=== PATIENT | female | born 1965 | race Caucasian/White ===

== ENCOUNTER 2019-03-31 15:29 | Outpatient (CLI) | payer MEDICAID, SELFPAY ==
[2019-03-31 15:46] LABS: Abs Immature Grans 0.01 k/cumm (0.0-0.09); Absolute Basophil Count 0.02 k/cumm (0.0-0.2); Absolute Eosinophil Count 0.12 k/cumm (0.0-0.7); Absolute Lymphocyte Count 2.31 k/cumm (1.2-3.4); Absolute Monocyte Count 0.73 k/cumm (0.11-0.7); Absolute Neutrophil Count 3.81 k/cumm (1.2-6.7); Basophils % 0.3; Eosinophils % 1.7; HCT 44.1 % (36.0-46.0); HGB 15.1 g/dL (12.0-15.5); Immature Grans % 0.1; Mean Corp. HGB Concentration 34.2 g/dL (32.0-36.0); Mean Corpuscular Hemoglobin 33.3 pg (27.0-33.0); Mean Corpuscular Volume 97.1 fL (80-95); Mean Platelet Volume 10.4 fL (8.0-11.0); Monocytes % 10.4; Neutrophils % 54.5; Platelet Count 266 x1000/uL (130-400); RBC 4.54 m/cumm (4.00-5.20); RBC Distribution Width 13.6 % (11.7-14.6)
[2019-03-31 17:19] LABS: Iron 124 ug/dL (50-175); Total Iron Binding Capacity 318 ug/dL (250-450)
[2019-03-31 17:32] LABS: ALT 38 U/L (14-59); AST 18 U/L (15-37); Alkaline Phosphatase 78 U/L (46-116); Anion Gap 8.2 mmol/L (3-11); BUN 20 mg/dL (7-18); Bilirubin, Total 0.3 mg/dL (0.2-1.0); CO2 25.8 mmol/L (21.0-32.0); CREATININE 0.78 mg/dL (0.55-1.02); Calcium 9.3 mg/dL (8.5-10.1); Chloride 104 mmol/L (98-107); Ferritin 49 ng/mL (8-388); Glucose 85 mg/dL (70-100); Potassium 4.5 mmol/L (3.5-5.1); Sodium 138 mmol/L (136-145); TSH (W/Ref FT4) 4.98 uIU/mL (0.36-3.74); Total Protein 7.6 g/dL (6.4-8.2)
[2019-03-31 17:55] LABS: FREE T4 0.91 ng/dL (0.76-1.46)
== END 2019-03-31 15:49 ==
PROVIDERS: PCP Nurse Practitioner Family; Visit Provider Obstetrics & Gynecology
DX: N92.0 Excessive and frequent menstruation with regular cycle (principal); R53.83 Other fatigue
CPT/HCPCS: 36415; 80053; 82728; 83540; 83550; 84439; 84443; 85025

== ENCOUNTER 2019-04-15 13:46 | Outpatient (CLI) | payer MEDICAID, SELFPAY ==
[2019-04-15 16:27] LABS: HCT 43.9 % (36.0-46.0); HGB 14.8 g/dL (12.0-15.5); Mean Corp. HGB Concentration 33.7 g/dL (32.0-36.0); Mean Corpuscular Hemoglobin 32.5 pg (27.0-33.0); Mean Corpuscular Volume 96.5 fL (80-95); Mean Platelet Volume 9.9 fL (8.0-11.0); Platelet Count 271 x1000/uL (130-400); RBC 4.55 m/cumm (4.00-5.20); RBC Distribution Width 13.2 % (11.7-14.6); White Blood Cell Count 7.84 k/cumm (4.4-10.8)
== END 2019-04-15 14:06 ==
PROVIDERS: PCP Nurse Practitioner Family; Visit Provider Obstetrics & Gynecology
DX: N95.0 Postmenopausal bleeding (principal); Z01.812 Encounter for preprocedural laboratory examination; Z01.818 Encounter for other preprocedural examination
CPT/HCPCS: 36415; 85027; 86850; 86900; 86901

== ENCOUNTER 2019-04-21 08:59 | Day surgery (SDC) | payer MEDICAID, SELFPAY ==
[2019-04-15 14:25] VITALS: BP 110/66; PULSE 62; RESP 16; TEMP 37.3; O2SAT 98
--- NOTE | 2019-04-20 10:22 | W.PM.HP.N ---
Date of service: 04/21/19 Time of Service: 07:00 Assessment and Plan Assessment and plan (1) Fibroids, submucosal: Status: Acute Assessment and plan: 1) Perimenopausal menorrhagia: (2) Fibroids, submucosal: 53 yo perimenopausal bleeding with complaints of menorraghia/submucosal fibroid will get labs cbc,tsh, prolactin iron studies plan operative hysteroscopy D+C myomectomy consent signed all questions asked and answered risks bleeding, infection and uterine perforation reviewed reviewed risk of bowel and/or bladder injury if perforation occurs discussed remote risk of loss uterus (2) Perimenopausal menorrhagia: Status: Acute History of Present Illness Narrative: 1) Perimenopausal menorrhagia: (2) Fibroids, submucosal: 53 yo perimenopausal bleeding with complaints of menorraghia/submucosal fibroid will get labs cbc,tsh, prolactin iron studies plan operative hysteroscopy D+C myomectomy PFSH Social History Smoking/Tobacco Use Status: Current every day Tobacco Type: cigarettes Tobacco: How many years used: 40 Do you feel safe at home: Yes Do you feel safe in your relationship?: Yes Female Reproductive History Menstrual Date of menopause: 12/23/13 History History 5 Para 5 Hx # Term Pregnancies 5 Multiple births Hx # Pregnancies Ectopic pregnancies AB induced Hx Number of Living Children 5 AB spontaneous Meds Home Medications and Allergies Home Medications Medication Instructions Recorded Confirmed Type albuterol sulfate 2.5 mg IH .Q4-6H PRN ml 03/30/19 04/15/19 History albuterol sulfate 90 mcg/actuation 2 puff IH QID 03/30/19 04/15/19 History aerosol inhaler ipratropium bromide 17 2 puff IH .Q4-6H PRN gm 03/30/19 04/15/19 History mcg/actuation HFA aerosol inhaler pyridoxine (vitamin B6) 50 mg 50 mg PO DAILY 03/30/19 04/15/19 History tablet vitamin B12 1,000 mcg-folic acid mehreen SL 03/30/19 04/15/19 History 400 mcg sublingual lozenge cholecalciferol (vitamin D3) 1,000 1,000 unit PO DAILY 03/31/19 04/15/19 History unit capsule levothyroxine 25 mcg tablet 25 mcg PO DAILY #30 tab 04/07/19 04/15/19 Rx Allergies Allergy/AdvReac Type Severity Reaction Status Date / Time No Known Allergies Allergy Verified 04/15/19 14:19 Exam Narrative Exam Narrative: 53 yo perimenopausal female with abnormal uterine bleeding, submucosal fibroid scheduled for Hysteroscopy D+C Myomectomy Chest Chest: normal inspection of the chest Resp Effort & Inspection: normal respiratory effort Auscultation: clear to auscultation bilaterally Cardio Rate: regular rate Rhythm: regular rhythm Heart Sounds: S1 normal and S2 normal GI Inspection: normal to inspection Palpation: soft and no hepatosplenomegaly Percussion: normal to percussion Auscultation: normal bowel sounds Results Last Vital Signs Temp 37.3 C 04/15/19 14:25 Pulse 62 04/15/19 14:25 Resp 16 04/15/19 14:25 BP 110/66 04/15/19 14:25 Pulse Ox 98 04/15/19 14:25
[2019-04-21 09:05] VITALS: BP 110/64; PULSE 59; RESP 20; TEMP 36.3; O2SAT 98
[2019-04-21] MEDS: Lactated Ringers 1,000 ML 125 ML IV (10:00)
--- NOTE | 2019-04-21 14:09 | ENDOMET_PTH ---
PATIENT: Joann Irving LOC: [facility] U#:[id number] AGE/SX: 53/F ROOM: RE04/21/[address]: Amy Jones MD : 1965 BED: DIS: 04/21/2019 SPEC #: [id number] RECD: 04/21/19 16:49 STATUS: ENIO REBrandy #: [id number] NICKI: 04/21/19 14:[address]: Amy Jones DEPT: Surgical Specimen RECD BY: Sangeeta Jenkins ENTERED: 04/21/19 16:50 SP TYPE: Endomet OTHR DR: Lupillo Rodas Tissues: 1 - ENDOMETRIUM BX/CURRETTE 2 - CERVICAL BIOPSY Procedures: GROSS AND MICRO LEVEL 4 Comments: [id number]
[2019-04-21 14:58] VITALS: BP 91/51; PULSE 54; RESP 15; TEMP 36.4; O2SAT 94
[2019-04-21 15:38] VITALS: BP 93/55; PULSE 50; RESP 16; TEMP 36.1; O2SAT 97
[2019-04-21] MEDS: Acetaminophen 500 MG TAB 1000 MG PO (16:01)
[2019-04-21 16:30] VITALS: BP 95/47; PULSE 57; RESP 18; TEMP 36; O2SAT 97
--- NOTE | 2019-04-22 12:30 | ROE_ITS ---
DATE OF PROCEDURE: April 21, 2019 PREOPERATIVE DIAGNOSIS: Submucosal fibroid. POSTOPERATIVE DIAGNOSIS: Submucosal fibroid. PROCEDURE: Operative hysteroscopy; myomectomy; D $T$ C SURGEON: Amy Jones M.D. ANESTHESIA: General. COMPLICATIONS: None. ESTIMATED BLOOD LOSS: < 25 cc's FLUIDS: Per Anesthesia record. PROCEDURE: The patient was taken to the Operating Room where she was properly identified. She was t hen placed on the operating table in a dorsal supine position and general anesthesia was induced with out difficulty. She was then placed in the dorsal lithotomy position and prepped and draped in a nor mal sterile fashion. A bivalved speculum was placed; the cervix was visualized, grasped on the anter ior lip with a single-tooth tenaculum. The cervix was then dilated to 18 [place] using the HouseFix dila tors. The operative scope was advanced into the uterine cavity without difficulty. Using the preset bipolar cautery, the entire submucosal fibroid was removed. The fragments of the fibroid were sent to Pathology for permanent evaluation. A sharp curettage was performed. The curettings were sent to Pathology for permanent evaluation. The hysteroscope and tenaculum were removed. There was an ante rior lip cervical mass, probably fibroid, which was excised using the #10 blade; this was also sent t o Pathology for permanent evaluation. The excision site was then closed with #2-0 Vicryl in a runnin g locked fashion. Once hemostasis was confirmed, the patient was awakened and taken to the recovery room in stable condition. Sponge, lap, needle and instrument counts were correct x2.
== END 2019-04-21 16:50 | disposition home or self-care (01) ==
PROVIDERS: PCP Nurse Practitioner Family; Visit Provider Obstetrics & Gynecology
PROC: 0UDB8ZZ Extraction of Endometrium, Via Natural or Artificial Opening Endoscopic (ICD-10-PCS; CPT 58558; principal; 2019-04-21 09:30)
DX: D25.0 Submucous leiomyoma of uterus (principal); N92.4 Excessive bleeding in the premenopausal period; N84.0 Polyp of corpus uteri
CPT/HCPCS: 58145; 58558; 88305; NC; J1885; J2250; J2405; J3010

== ENCOUNTER 2021-02-04 12:25 | Emergency (ER) | payer OTHER, MEDICAID, SELFPAY ==
[2021-02-04] VITALS (17 sets, daily range): BP systolic 91–116; BP diastolic 57–69; PULSE 58–78; RESP 12–27; TEMP 36.2; O2SAT 95–100
--- NOTE | 2021-02-04 | DI.CT_ITS ---
Exam(s) CT THORACIC LUMBAR SPINE REC EXAM: CT THORACIC LUMBAR SPINE REC CLINICAL HISTORY: [place] [facility] [place]: COMPARISON: No exams were available for comparison FINDINGS: LUMBOSACRAL: The appearance of the right transverse process of L1 is developmental variant. The appearance of the left transverse process L1 level is also probably developmental. No other transverse process findin gs identified. No compression fractures. Degenerative anterolisthesis of L4 upon L5 noted approxima tely 6 millimeters. This is related to degenerative changes in the facet joints and there also appea rs to be pars defect on 1 side at this level. Mild foraminal stenosis bilaterally at this level. THORACIC: No compression fractures nor listhesis. No ominous osseous lesions. No central nor foraminal stenos is. Mild degenerative facet joint changes at multiple levels. No prominent disc herniations evident . No paraspinal mass. No incidental significant pulmonary findings in the field of view of this bigg dy. IMPRESSION: Right transverse process L1 no fracture. Equivocal findings left L1 transverse process at this level , probably also developmental. No other fractures evident in thoracic and lumbar spines. Mild degenerative anterolisthesis L4 upon L5.
--- NOTE | 2021-02-04 12:45 | DI.CT_ITS ---
Exam(s) CT HEAD CERVICAL SPINE WO EXAM: CT HEAD CERVICAL SPINE WO CLINICAL HISTORY: Trauma. TECHNIQUE: Imaging Protocol: Axial computed tomography images with coronal and sagittal reformatted images were created and reviewed COMPARISON: No exams were available for comparison FINDINGS: BRAIN: There are no skull fractures nor fluid in the visualized paranasal sinuses. There is no evidence of intracranial hemorrhage, mass effect, or shift of midline structures. There are no extra-axial fluid collections. The ventricles are not enlarged or shifted and there is no blo od within the ventricular system nor within the basal cisterns. CERVICAL SPINE: There is no evidence of acute fracture nor listhesis. No significant prevertebral soft tissue swelli ng. There is reversal of the normal curvature which appears to be related to advanced chronic degenerativ e disc disease at C5-6 level where there is advanced disc space narrowing and posterior bony ridging. There is no significant facet joint malalignment. No significant osseous lesions evident. IMPRESSION: No acute intracranial findings on this noninfused CT scan of the brain. No evidence of cervical spine fracture, malalignment, nor acute compromise of the cervical spinal can al. Chronic degenerative disc disease C5-6 level. RADIATION DOSE DELIVERED: 979.91mGy.cm Total DLP DATA REPOSITORY: All CT scans at this facility are submitted to the National Radiology Data Registry (NRDR) Dose Index Registry (DIR) with the [employer] (ACR). RADIATION OPTIMIZATION: All CT scans at this facility use at least one of these dose optimization te chniques: automated exposure control; mA and/or kV adjustment per patient size (includes targeted exa ms where dose is matched to clinical indication); or iterative reconstruction.
--- NOTE | 2021-02-04 12:45 | DI.CT_ITS ---
Exam(s) CT CHEST/ABD/PEL W EXAM: CT CHEST/ABD/PEL W CLINICAL HISTORY: Trauma. TECHNIQUE: Imaging Protocol: Axial computed tomography images with coronal and sagittal reformatted images were created and reviewed CONTRAST MATERIAL: Intravenous: Omnipaque 350 Contrast volume:100 ml Oral: None COMPARISON: No exams were available for comparison FINDINGS: CHEST: LUNGS: No evidence of lung contusion, infiltrate, pleural effusion, or pneumothorax. No incidental p ulmonary nodules.. MEDIASTINUM: No evidence of mediastinal hematoma. Visualized thyroid unremarkable.No hilar nor media stinal adenopathy. No axillary adenopathy. CARDIAC: Heart size is normal. There is no pericardial effusion.Thoracic aorta is intact. No eviden ce of significant aortic trauma. No dissection. OSSEOUS: Fractures versus developmental variant of both transverse process is of L1 level.. ABDOMEN: There is no evidence of bowel wall nor mesenteric hematoma. There is no ascites. LIVER: No evidence of a patent laceration. No other significant focal hepatic findings. No dilatati on of intrahepatic ducts. GALLBLADDER/BILIARY: No obvious gallbladder pathology. CBD is not dilated. PANCREAS: No evidence of pancreatic mass nor dilatation of the pancreatic duct. SPLEEN: No splenic laceration or perisplenic fluid. Spleen size is normal. Splenic and portal veins are patent. ADRENALS: There are no significant adrenal masses. KIDNEYS: No evidence of significant renal trauma. No renal laceration. No subcapsular hematoma.. N o significant focal renal findings. No hydronephrosis. ABDOMINAL AORTA: Intact. No evidence of significant abdominal aortic trauma and the aortoiliac segme nts are intact bilaterally LYMPH NODES: There is no retroperitoneal nor paraaortic adenopathy. ABDOMINAL WALL: No evidence of significant anterior abdominal wall hernia. GI: No evidence of obvious mesenteric hematoma. No bowel wall hematoma. PELVIS: LYMPH NODES: There is no intrapelvic nor inguinal adenopathy. GI: No evidence of appendicitis.No evidence of sigmoid diverticulitis. URINARY BLADDER: No calculi nor masses evident REPRODUCTIVE: Age appropriate. No abnormal adnexal masses. No free fluid in the pelvis. OSSEOUS: Multiple right-sided pelvic fractures involving both superior and inferior pubic rami, with significant displacement and also extending into the right acetabulum anterior aspect. Mild diastasi s of the symphysis pubis. Subtle angulation of the inferior pubic ramus on the opposite-left side is possibly also subtle fracture. There is also a sys fracture of the right side of the sacrum, not as sociated with prominent diastasis of the ipsilateral sacroiliac joint. No obvious fracture of the le ft michael sacrum. No fractures of the femoral head and neck on either side. No large intra pelvic hematoma. Incidentally noted is an element of degenerative anterolisthesis of L4 upon L5. Approximately 5 mill imeters. No compression fractures. IMPRESSION: 1. Multiple right michael pelvic fractures including both superior and inferior pubic rami and extending into in the anterior aspect of the acetabulum. Also ipsilateral right sacral fracture. Also possib le subtle fracture of the inferior pubic ramus of the opposite side. No evidence of large intrapelvic hematoma. 2. Developmental anomaly versus is fractures of transverse processes bilaterally at L1 level. 3. No evidence of significant intrathoracic trauma. RADIATION DOSE DELIVERED: 1,261.34mGy.cm Total DLP DATA REPOSITORY: All CT scans at this facility are submitted to the National Radiology Data Registry (NRDR) Dose Index Registry (DIR) with the [employer] (ACR). RADIATION OPTIMIZATION: All CT scans at this facility use at least one of these dose optimization te chniques: automated exposure control; mA and/or kV adjustment per patient size (includes targeted exa ms where dose is matched to clinical indication); or iterative reconstruction.
--- NOTE | 2021-02-04 12:52 | W.ED.GENAD ---
Discharge Plan Discharge Details Chief Complaint: Trauma Primary Care Provider: Lupillo Rodas ED Provider: Amy Pineda Home Meds and New Rx's Prescriptions: No Action cholecalciferol (vitamin D3) 1,000 unit capsule 1,000 unit PO DAILY RF: 0 albuterol sulfate 2.5 mg /3 mL (0.083 %) solution for nebulization 2.5 mg IH .Q4-6H PRNRF: 0 Atrovent HFA 17 mcg/actuation HFA aerosol inhaler 2 puff IH .Q4-6H PRNRF: 0 albuterol sulfate [ProAir HFA] 90 mcg/actuation HFA aerosol inhaler 2 puff IH QID RF: 0 vitamin [id number] acid 1,000-400 mcg lozenge SL RF: 0 pyridoxine (vitamin B6) 50 mg tablet 50 mg PO DAILY RF: 0 ibuprofen 200 mg Capsule 600 mg PO Q6H PRNRF: 0 Flovent HFA 110 mcg/actuation HFA aerosol inhaler 2 puff INHALATION BID RF: 0 iron 18 mg Tablet 18 mg PO DAILY RF: 0 Discharge Data Discharge Date/Time-TO BE ENTERED AT DEPARTURE: 02/04/21 15:01 Medical Decision Making <Brooklynn Woodard - Last Filed: 02/05/21 08:37> 55-year-old female presents the ER with chief complaint of crush injury. She reports that there was a team of horses and a wagon they were running away when she was pinned up against a truck and horses. She reports feeling something crack complaining of right-sided rib pain and right sided pelvic pain. She reports losing consciousness after the injury. She was caught by 2 and had no difficulty breathing she is alert and oriented x3 upon arrival. On initial examination Dr. Dianne Pineda ER attending was at the bedside for patient evaluation she was slightly hypertensive initially at 93/59. A pelvic binder was placed FAST exam was performed at bedside by Dr. Pineda which was negative, IV fluids initiated Zofran and fentanyl were given. She has a past medical history of asthma PTSD hypothyroidism anxiety. Surgical history includes appendectomy and tubal ligation. She is a current everyday smoker occasional alcohol. FINDINGS: BRAIN: There are no skull fractures nor fluid in the visualized paranasal sinuses. There is no evidence of intracranial hemorrhage, mass effect, or shift of midline structures. There are no extra-axial fluid collections. The ventricles are not enlarged or shifted and there is no blood within the ventricular system nor within the basal cisterns CERVICAL SPINE: There is no evidence of acute fracture nor listhesis. No significant prevertebral soft tissue swelling. There is reversal of the normal curvature which appears to be related to advanced chronic degenerative disc disease at C5-6 level where there is advanced disc space narrowing and posterior bony ridging. There is no significant facet joint malalignment. No significant osseous lesions evident. IMPRESSION: No acute intracranial findings on this noninfused CT scan of the brain. No evidence of cervical spine fracture, malalignment, nor acute compromise of the cervical spinal canal. Chronic degenerative disc disease C5-[address] Pineda note above, care was handed off to her at her request. Patient hemodynamically stable at the time of this dictation, pending transfer to [facility]. <Amy Pineda MD - Last Filed: 02/11/21 09:36> Joann Irving is a 55-year-old woman without reported history of major medical problems who presented to the emergency department with chief complaint right hip pain in setting of being crushed between horse and vehicle. Patient initially seen by PROJECT DIRECTOR, care assumed by me secondary to acuity. On exam patient appears uncomfortable but is nontoxic appearing. She is alert and oriented. There is tenderness palpation over the right anterior and lateral lower rib, right upper quadrant, and the right hip. Patient is unable to range the right hip secondary to pain. The right lower extremity is neurovascularly intact. Bedside fast is negative. Pelvic binder applied. Concern for major trauma to the thorax/abdomen/pelvis. Patient reports no head injury, however with syncope directly after injury and distracting injury plan for CT head and cervical spine as well as CT chest/abdomen/pelvis. IV placement x2. IV fluid hydration. Screening labs. Patient given IV fentanyl for pain. 13:00 bedside FAST negative. Pelvic binder applied, Pt to CT emergently. CT shows right pubic rami fractures extending to the acetabulum, right sacral fracture, possible L1 transverse process fractures versus congenital abnormality of the transverse processes. Findings discussed with the patient. Patient is amenable to transfer. I discussed patient presentation results with Dr. Graff of trauma surgery,who requests C-spine collar remain in place, head of bed to 30 degrees. Patient is hemodynamically stable at this time with no evidence of internal bleeding. Will keep pelvic binder in place. Plan for ground transfer, this was also discussed with trauma surgery who agrees ground transfer appropriate based on radiologic nature of injuries. Patient departed the emergency department with medics without further incident. Clinical impression: Pelvic fractures, sacral fracture Disposition: [facility] Medical Records Medical records reviewed: Yes I reviewed the patient's medical records. Imaging Data Radiologic Study: Attestation: I personally reviewed and interpreted this imaging study as follows: Radiologist's impression: Exam(s) CT HEAD CERVICAL SPINE WO EXAM: CT HEAD CERVICAL SPINE WO CLINICAL HISTORY: Trauma. TECHNIQUE: Imaging Protocol: Axial computed tomography images with coronal and sagittal reformatted images were created and reviewed COMPARISON: No exams were available for comparison FINDINGS: BRAIN: There are no skull fractures nor fluid in the visualized paranasal sinuses. There is no evidence of intracranial hemorrhage, mass effect, or shift of midline structures. There are no extra-axial fluid collections. The ventricles are not enlarged or shifted and there is no blood within the ventricular system nor within the basal cisterns. CERVICAL SPINE: There is no evidence of acute fracture nor listhesis. No significant prevertebral soft tissue swelling. There is reversal of the normal curvature which appears to be related to advanced chronic degenerative disc disease at C5-6 level where there is advanced disc space narrowing and posterior bony ridging. There is no significant facet joint malalignment. No significant osseous lesions evident. IMPRESSION: No acute intracranial findings on this noninfused CT scan of the brain. No evidence of cervical spine fracture, malalignment, nor acute compromise of the cervical spinal canal. Chronic degenerative disc disease C5-6 level. EXAM: CT CHEST/ABD/PEL W CLINICAL HISTORY: Trauma. TECHNIQUE: Imaging Protocol: Axial computed tomography images with coronal and sagittal reformatted images were created and reviewed CONTRAST MATERIAL: Intravenous: Omnipaque 350 Contrast volume:100 ml Oral: None COMPARISON: No exams were available for comparison FINDINGS: CHEST: LUNGS: No evidence of lung contusion, infiltrate, pleural effusion, or pneumothorax. No incidental pulmonary nodules.. MEDIASTINUM: No evidence of mediastinal hematoma. Visualized thyroid unremarkable.No hilar nor mediastinal adenopathy. No axillary adenopathy. CARDIAC: Heart size is normal. There is no pericardial effusion.Thoracic aorta is intact. No evidence of significant aortic trauma. No dissection. OSSEOUS: Fractures versus developmental variant of both transverse process is of L1 level.. ABDOMEN: There is no evidence of bowel wall nor mesenteric hematoma. There is no ascites. LIVER: No evidence of a patent laceration. No other significant focal hepatic findings. No dilatation of intrahepatic ducts. GALLBLADDER/BILIARY: No obvious gallbladder pathology. CBD is not dilated. PANCREAS: No evidence of pancreatic mass nor dilatation of the pancreatic duct. SPLEEN: No splenic laceration or perisplenic fluid. Spleen size is normal. Splenic and portal veins are patent. ADRENALS: There are no significant adrenal masses. KIDNEYS: No evidence of significant renal trauma. No renal laceration. No subcapsular hematoma.. No significant focal renal findings. No hydronephrosis. ABDOMINAL AORTA: Intact. No evidence of significant abdominal aortic trauma and the aortoiliac segments are intact bilaterally LYMPH NODES: There is no retroperitoneal nor paraaortic adenopathy. ABDOMINAL WALL: No evidence of significant anterior abdominal wall hernia. GI: No evidence of obvious mesenteric hematoma. No bowel wall hematoma. PELVIS: LYMPH NODES: There is no intrapelvic nor inguinal adenopathy. GI: No evidence of appendicitis.No evidence of sigmoid diverticulitis. URINARY BLADDER: No calculi nor masses evident REPRODUCTIVE: Age appropriate. No abnormal adnexal masses. No free fluid in the pelvis. OSSEOUS: Multiple right-sided pelvic fractures involving both superior and inferior pubic rami, with significant displacement and also extending into the right acetabulum anterior aspect. Mild diastasis of the symphysis pubis. Subtle angulation of the inferior pubic ramus on the opposite-left side is possibly also subtle fracture. There is also a sys fracture of the right side of the sacrum, not associated with prominent diastasis of the ipsilateral sacroiliac joint. No obvious fracture of the left michael sacrum. No fractures of the femoral head and neck on either side. No large intra pelvic hematoma. Incidentally noted is an element of degenerative anterolisthesis of L4 upon L5. Approximately 5 millimeters. No compression fractures. IMPRESSION: 1. Multiple right michael pelvic fractures including both superior and inferior pubic rami and extending into in the anterior aspect of the acetabulum. Also ipsilateral right sacral fracture. Also possible subtle fracture of the inferior pubic ramus of the opposite side. No evidence of large intrapelvic hematoma. 2. Developmental anomaly versus is fractures of transverse processes bilaterally at L1 level. 3. No evidence of significant intrathoracic trauma. Lab Data Lab results reviewed: Yes I reviewed the patient's lab results. Labs: Laboratory Tests Range/Units 02/04/21 02/04/21 02/04/21 12:40 12:40 12:40 WBC (4.4-10.8) 10^3/uL 14.18 H RBC (3.93-5.22) 10^6/uL 4.29 Hgb (11.2-15.7) g/dL 14.2 Hct (36.0-46.0) % 42.9 MCV (80-95) fL 100.0 H MCH (27.0-33.0) pg 33.1 H MCHC (32.0-36.0) % 33.1 RDW (11.7-14.6) % 12.7 Plt Count (130-400) 10^3/uL 241 MPV (8.0-11.0) fL 10.7 Immature Gran % 1.1 Neutrophils % 74.7 Band Neutrophils % Lymphocytes % 15.8 Atypical Lymphs % Monocytes % 7.0 Eosinophils % 1.0 Basophils % 0.4 Metamyelocytes % Myelocytes % Promyelocytes % Other Cells % Nucleated RBC % % 0 Absolute Neutrophils (1.2-6.7) 10^3/uL 10.59 H Absolute Lymphocytes (1.2-3.4) 10^3/uL 2.24 Absolute Monocytes (0.1-0.8) 10^3/uL 0.99 H Absolute Eosinophils (0.0-0.7) 10^3/uL 0.14 Absolute Basophils (0.0-0.2) 10^3/uL 0.06 RBC Morphology Polychromasia Hypochromasia Poikilocytosis Basophilic Stippling Anisocytosis Microcytosis Macrocytosis Spherocytes Tear Drop Cells Ovalocytes Stomatocytes [place] Bodies [place] Cells/Echinocytes Acanthocytes (Spur) Schistocytes PT INR Sodium (136-145) mmol/L 142 Potassium (3.5-5.1) mmol/L 3.9 Chloride (98-107) mmol/L 107 Carbon Dioxide (21.0-32.0) mmol/L 25.2 Anion Gap (3-11) mmol/L 9.8 BUN (7-18) mg/dL 18 Creatinine (0.55-1.02) mg/dL 1.0 Estimated GFR/1.73 m2 (mL/min/1.73m2) 57.56 Glucose (74-106) mg/dL 159 H Calcium (8.5-10.1) mg/dL 9.5 Magnesium (1.8-2.4) mg/dL 2.3 Total Bilirubin (0.2-1.0) mg/dL 0.3 AST (15-37) U/L 42 H ALT (14-59) U/L 44 Alkaline Phosphatase (46-116) U/L 60 Troponin I (<0.06) ng/mL < 0.05 Total Protein (6.4-8.2) g/dL 7.1 Albumin (3.4-5.0) g/dL 3.9 Patient ABO/Rh O Positive Antibody Screen NEGATIVE Range/Units 02/04/21 02/04/21 02/04/21 12:49 12:49 12:49 WBC (4.4-10.8) 10^3/uL Cancelled RBC (3.93-5.22) 10^6/uL Cancelled Hgb (11.2-15.7) g/dL Cancelled Hct (36.0-46.0) % Cancelled MCV (80-95) fL Cancelled MCH (27.0-33.0) pg Cancelled MCHC (32.0-36.0) % Cancelled RDW (11.7-14.6) % Cancelled Plt Count (130-400) 10^3/uL Cancelled MPV (8.0-11.0) fL Cancelled Immature Gran % Cancelled Neutrophils % Cancelled Band Neutrophils % Cancelled Lymphocytes % Cancelled Atypical Lymphs % Cancelled Monocytes % Cancelled Eosinophils % Cancelled Basophils % Cancelled Metamyelocytes % Cancelled Myelocytes % Cancelled Promyelocytes % Cancelled Other Cells % Cancelled Nucleated RBC % % Cancelled Absolute Neutrophils (1.2-6.7) 10^3/uL Cancelled Absolute Lymphocytes (1.2-3.4) 10^3/uL Cancelled Absolute Monocytes (0.1-0.8) 10^3/uL Cancelled Absolute Eosinophils (0.0-0.7) 10^3/uL Cancelled Absolute Basophils (0.0-0.2) 10^3/uL Cancelled RBC Morphology Cancelled Polychromasia Cancelled Hypochromasia Cancelled Poikilocytosis Cancelled Basophilic Stippling Cancelled Anisocytosis Cancelled Microcytosis Cancelled Macrocytosis Cancelled Spherocytes Cancelled Tear Drop Cells Cancelled Ovalocytes Cancelled Stomatocytes Cancelled [place] Bodies Cancelled Norm Cells/Echinocytes Cancelled Acanthocytes (Spur) Cancelled Schistocytes Cancelled PT Cancelled INR Cancelled Sodium (136-145) mmol/L Cancelled Potassium (3.5-5.1) mmol/L Cancelled Chloride (98-107) mmol/L Cancelled Carbon Dioxide (21.0-32.0) mmol/L Cancelled Anion Gap (3-11) mmol/L Cancelled BUN (7-18) mg/dL Cancelled Creatinine (0.55-1.02) mg/dL Cancelled Estimated GFR/1.73 m2 (mL/min/1.73m2) Cancelled Glucose (74-106) mg/dL Cancelled Calcium (8.5-10.1) mg/dL Cancelled Magnesium (1.8-2.4) mg/dL Total Bilirubin (0.2-1.0) mg/dL Cancelled AST (15-37) U/L Cancelled ALT (14-59) U/L Cancelled Alkaline Phosphatase (46-116) U/L Cancelled Troponin I (<0.06) ng/mL Total Protein (6.4-8.2) g/dL Cancelled Albumin (3.4-5.0) g/dL Cancelled Patient ABO/Rh Antibody Screen Range/Units 02/04/21 12:49 WBC (4.4-10.8) 10^3/uL RBC (3.93-5.22) 10^6/uL Hgb (11.2-15.7) g/dL Hct (36.0-46.0) % MCV (80-95) fL MCH (27.0-33.0) pg MCHC (32.0-36.0) % RDW (11.7-14.6) % Plt Count (130-400) 10^3/uL MPV (8.0-11.0) fL Immature Gran % Neutrophils % Band Neutrophils % Lymphocytes % Atypical Lymphs % Monocytes % Eosinophils % Basophils % Metamyelocytes % Myelocytes % Promyelocytes % Other Cells % Nucleated RBC % % Absolute Neutrophils (1.2-6.7) 10^3/uL Absolute Lymphocytes (1.2-3.4) 10^3/uL Absolute Monocytes (0.1-0.8) 10^3/uL Absolute Eosinophils (0.0-0.7) 10^3/uL Absolute Basophils (0.0-0.2) 10^3/uL RBC Morphology Polychromasia Hypochromasia Poikilocytosis Basophilic Stippling Anisocytosis Microcytosis Macrocytosis Spherocytes Tear Drop Cells Ovalocytes Stomatocytes [place] Bodies [place] Cells/Echinocytes Acanthocytes (Spur) Schistocytes PT INR Sodium (136-145) mmol/L Potassium (3.5-5.1) mmol/L Chloride (98-107) mmol/L Carbon Dioxide (21.0-32.0) mmol/L Anion Gap (3-11) mmol/L BUN (7-18) mg/dL Creatinine (0.55-1.02) mg/dL Estimated GFR/1.73 m2 (mL/min/1.73m2) Glucose (74-106) mg/dL Calcium (8.5-10.1) mg/dL Magnesium (1.8-2.4) mg/dL Total Bilirubin (0.2-1.0) mg/dL AST (15-37) U/L ALT (14-59) U/L Alkaline Phosphatase (46-116) U/L Troponin I (<0.06) ng/mL Total Protein (6.4-8.2) g/dL Albumin (3.4-5.0) g/dL Patient ABO/Rh Cancelled Antibody Screen HPI <Brooklynn Woodard - Last Filed: 02/05/21 08:37> General Mode of arrival: wheelchair. Date/Time Provider Initiated Documentation: 02/04/21 12:49. Limitations to Documentation: no limitations. Information obtained by: RN notes reviewed. HPI Narrative: 55-year-old female presents the ER with chief complaint of crush injury. She reports that there was a team of horses and a wagon they were running away when she was pinned up against a truck and horses. She reports feeling something crack complaining of right-sided rib pain and right sided pelvic pain. She reports losing consciousness after the injury. She was caught by 2 and had no difficulty breathing she is alert and oriented x3 upon arrival. On initial examination Dr. Dianne Pineda ER attending was at the bedside for patient evaluation she was slightly hypertensive initially at 93/59. A pelvic binder was placed FAST exam was performed at bedside by Dr. Pineda which was negative, IV fluids initiated Zofran and fentanyl were given. She has a past medical history of asthma PTSD hypothyroidism anxiety. Surgical history includes appendectomy and tubal ligation. She is a current everyday smoker occasional alcohol. Related Data Home Medications Medication Instructions Recorded Confirmed albuterol sulfate 2.5 mg IH .Q4-6H PRN ml 03/30/19 02/04/21 albuterol sulfate 90 mcg/actuation 2 puff IH QID 03/30/19 02/04/21 aerosol inhaler ipratropium bromide 17 2 puff IH .Q4-6H PRN gm 03/30/19 02/04/21 mcg/actuation HFA aerosol inhaler pyridoxine (vitamin B6) 50 mg 50 mg PO DAILY 03/30/19 02/04/21 tablet vitamin B12 1,000 mcg-folic acid mehreen SL 03/30/19 04/15/19 400 mcg sublingual lozenge cholecalciferol (vitamin D3) 25 1,000 unit PO DAILY 03/31/19 02/04/21 mcg (1,000 unit) capsule ibuprofen 600 mg PO Q6H PRN 04/21/19 02/04/21 fluticasone propionate [Flovent 2 puff INHALATION BID 02/04/21 02/04/21 HFA] iron 18 mg PO DAILY 02/04/21 02/04/21 Allergies Allergy/AdvReac Type Severity Reaction Status Date / Time No Known Allergies Allergy Verified 05/05/19 15:00 General Stated Complaint: Trauma ERIC: 2 <Amy Pineda MD - Last Filed: 02/11/21 09:36> General Mode of arrival: wheelchair. Limitations to Documentation: no limitations. Information obtained by: patient, RN notes reviewed and old records reviewed. HPI Narrative: Joann Irving is a 55-year-old woman without reported history of major medical problems who presents emergency department chief complaint right hip pain after crush injury. Patient reports that a horse that she was working with fell and she was crushed between a horse in a vehicle. Patient reports that she heard a cracking sound in her pelvis. She reports right hip pain. Patient reports that she was able to take a few steps with assistance at the scene, but has severe pain in the right hip with weightbearing. Patient also reports pain in the right lateral ribs and right upper quadrant. Patient reports that she had a brief syncopal episode after the event that she believes was secondary to the pain she felt in her right hip. She states that she did not hit in the head. No vomiting. She denies pain in her arms or legs. Does report pain in her tailbone area, denies other back pain. Patient reports that she was previously well and in her usual state of health. No fever, shortness of breath, cough, numbness, weakness. <Amy Pineda MD - Last Filed: 02/11/21 09:36> Narrative: Constitutional: denies fevers Eyes: denies eye pain ENT: denies ear pain, dental pain, sore throat Cardiovascular: denies edema, reports right lower lateral rib pain, denies other chest pain Respiratory: denies SOB, cough GI: denies vomiting, diarrhea, reports right upper quadrant abdominal pain, denies other abdominal pain : denies flank pain MSK: denies neck pain, myalgias, reports right hip pain, denies other joint pain, reports pain in the area of her tailbone, denies any other back pain Skin: denies rash Neuro: denies headaches, numbness, weakness PFS <Brooklynn Morochoton - Last Filed: 02/05/21 08:37> Medical History History of anxiety Pt reports during intake for surgery today. History of asthma Pt reports during intake for surgery 04/21/19. History of hypothyroidism Pt reports during intake for surgery today. Surgical History (Updated 05/05/19 @ 14:49 by Fiona Bansal LPN) History of appendectomy Age 5 History of tubal ligation 07/27/1990 Family History Father Hypertension Sister Thyroid disease Brother Down syndrome Mother Thyroid disease Anxiety Panic Social History Smoking/Tobacco Use Status: Current every day Tobacco Type: cigarettes Tobacco: How many years used: 40 Smoking risk assessment performed?: Yes Drug use: Never Details: second hand marijuan smoke Do you feel safe at home: Yes Do you feel safe in your relationship?: Yes Female Reproductive History Menstrual Date of menopause: 12/23/13 History History 5 Para 5 Hx # Term Pregnancies 5 Multiple births Hx # Pregnancies Ectopic pregnancies AB induced Hx Number of Living Children 5 AB spontaneous Exam <Brooklynn Woodard - Last Filed: 02/05/21 08:37> Narrative Exam Narrative: General: Well Developed, Awake and Alert, conversant. Skin: Warm and Dry HEENT: Head: No palpable deformities, Normocephalic Eyes: Pupils PERRLA, EOM's intact. No periorbital eccymosis or step off Ears: Canal patent. Tympanic membranes are clear . No ferrara's sign, no hemptympanum. Nose/Face: Atraumatic. Facial bones nontender to palpation and stable with manipulation. Mouth/Throat: No intraoral trauma. Teeth and mandible are intact. Neck: No midline tenderness, no step off, no deformity to palpation of C-spine. Trachea midline. Chest: No surface trauma. Lungs clear to ausculatation bilaterally. Heart: RRR, no rubs, murmurs or gallop. Abdomen: No abrasions, ecchymosis, or surface trauma. Nondistended. Nontender to palpation no guarding, rebound, or rigidity. Pelvis: Right-sided pelvic tenderness. Femoral pulses strong and equal dorsal pedal pulses palpable CMS intact distally. Extremities no surface trauma. Sensation intact. Peripheral pulses intact and equal.h Neuro: ANO x4, GCS 15, cranial nerves II through XII intact. Motor and sensory exam nonfocal. Reflexes are symmetric. <Amy Pineda MD - Last Filed: 02/11/21 09:36> Narrative Exam Narrative: Constitutional: Appears in pain, [id number], conversing normally HENT: head atraumatic/normocephalic/normal inspection, mucous membranes moist Eyes: conjunctiva normal, sclera normal, pupils 3mm b/l Neck: no stridor, normal ROM, trachea midline, no cervical spine tenderness palpation Chest: normal inspection, there is tenderness to palpation over the right anterior ribs and right lower lateral ribs, no deformity or crepitus Resp: normal work of breathing, LCTAB Cardio: normal rate, normal rhythm, no murmur appreciated GI: abdomen soft, non-distended, tenderness palpation right upper quadrant without rebound or guarding Back: normal inspection, no rash Skin: warm, dry, normal color, no rash, no skin signs of trauma to the chest or abdomen Neuro: alert, not altered, grossly non-focal, normal tone Ext: Tenderness palpation right hip, pain with ranging right hip. able to range right knee and right ankle minimally at this causes pain in the right hip. Normal sensation bilateral lower extremities. DP pulses intact and symmetric. Ranging bilateral upper extremities normally. Psych: normal mood, normal affect, normal behavior Course <Brooklynn Woodard - Last Filed: 02/05/21 08:37> Vital Signs Vital signs: Vital Signs Temperature 36.2 C L 02/04/21 12:34 Pulse 59 L 02/04/21 12:34 Blood Pressure 93/59 L 02/04/21 12:34 Pulse Oximetry 98 02/04/21 12:34 Temperature 36.2 C L 02/04/21 12:34 Temperature Source Temporal Artery Scan 02/04/21 12:34 Pulse 59 L 02/04/21 12:34 Blood Pressure 93/59 L 02/04/21 12:34 Blood Pressure Position Sitting 02/04/21 12:34 Pulse Oximetry 98 02/04/21 12:34 Oxygen Delivery Method Room Air 02/04/21 12:34 Oxygen Flow Rate 0 02/04/21 12:34 Pain Level 10 02/04/21 12:34
[2021-02-04] MEDS: fentaNYL 100 MCG/2 ML VIAL 50 MCG IVP ×3 (12:58→14:44)
[2021-02-04] MEDS: Ondansetron 4 MG/2 ML VIAL IVP (12:58)
[2021-02-04] MEDS: Normal Saline 1,000 ML 1000 ML IV (12:58)
[2021-02-04 13:12] LABS: Abs Immature Grans 0.15 10^3/uL (0.0-0.06); Absolute Eosinophil Count 0.14 10^3/uL (0.0-0.7); Absolute Lymphocyte Count 2.24 10^3/uL (1.2-3.4); Absolute Monocyte Count 0.99 10^3/uL (0.1-0.8); Basophils % 0.4; HCT 42.9 % (36.0-46.0); HGB 14.2 g/dL (11.2-15.7); Immature Grans % 1.1; Lymphocytes % 15.8; MCH 33.1 pg (27.0-33.0); MCHC 33.1 % (32.0-36.0); MPV 10.7 fL (8.0-11.0); Neutrophils % 74.7; Nucleated RBC 0 %; Platelet Count 241 10^3/uL (130-400); RBC 4.29 10^6/uL (3.93-5.22); RDW 12.7 % (11.7-14.6); RDW-SD 47.1 fL; WBC 14.18 10^3/uL (4.4-10.8)
[2021-02-04 13:16] LABS: Absolute Basophil Count 0.06 10^3/uL (0.0-0.2); Absolute Neutrophil Count 10.59 10^3/uL (1.2-6.7)
[2021-02-04 13:33] LABS: ALT 44 U/L (14-59); AST 42 U/L (15-37); Albumin 3.9 g/dL (3.4-5.0); Alkaline Phosphatase 60 U/L (46-116); Anion Gap 9.8 mmol/L (3-11); BUN 18 mg/dL (7-18); Bilirubin, Total 0.3 mg/dL (0.2-1.0); CO2 25.2 mmol/L (21.0-32.0); Calcium 9.5 mg/dL (8.5-10.1); Chloride 107 mmol/L (98-107); Estimated GFR 57.56 (mL/min/1.73m2); Glucose 159 mg/dL (74-106); Magnesium 2.3 mg/dL (1.8-2.4); Potassium 3.9 mmol/L (3.5-5.1); Sodium 142 mmol/L (136-145); Total Protein 7.1 g/dL (6.4-8.2)
[2021-02-04] MEDS: Omnipaque 350 MG/ML 100 ML BTL IV (13:37)
[2021-02-04] MEDS: Normal Saline - Diluent 50 ML VIAL IV (13:40)
[2021-02-04 13:42] LABS: Troponin I < 0.05 ng/mL (<0.06)
[2021-02-04 14:19] LABS: INR 1.1 (0.9-1.1); PTT Activated 21.9 sec (21.0-27.5); Prothrombin Time 10.9 sec (9.3-11.0)
== END 2021-02-04 15:01 ==
PROVIDERS: Registered Nurse Emergency; Emergency Provider Student in an Organized Health Care Education/Training Program; PCP Nurse Practitioner Family
DX: S32.591A Other specified fracture of right pubis, initial encounter for closed fracture (principal); S32.19XA Other fracture of sacrum, initial encounter for closed fracture; W23.0XXA Caught, crushed, jammed, or pinched between moving objects, initial encounter; R55 Syncope and collapse
CPT/HCPCS: 74177; 80053; 86850; 86900; 86901; 96361; 96374; 96375; 96376; 99285; 70450; 71260; 72125; 83735; 84484; 85025; 85610; 85730; J2405; J3010; J3490

== ENCOUNTER 2021-02-18 10:08 | Emergency (ER) | payer MEDICAID, SELFPAY ==
[2021-02-18] VITALS (19 sets, daily range): BP systolic 101–121; BP diastolic 54–63; PULSE 51–73; RESP 10–21; TEMP 37.1; O2SAT 95–98
--- NOTE | 2021-02-18 10:30 | DI.CT_ITS ---
Exam(s) CT CHEST PE CTA EXAM: CT CHEST PE CTA CLINICAL HISTORY: right sided chest pain, SOB, trauma 2 weeks ago. TECHNIQUE: Imaging Protocol: CT angiography of the chest was performed using pulmonary embolus whitney col. Multi planar reconstructions were performed. CONTRAST MATERIAL: Intravenous: Omnipaque 350 Contrast volume: 100 cc COMPARISON: CT CT CHEST/ABD/PEL W from 02/04/[address] THORACIC LUMBAR SPINE REC from 02/04/2021 FINDINGS: CHEST: PULMONARY ARTERIES: There are no intraluminal filling defects to suggest acute pulmonary emboli. LUNGS: There are no infiltrates nor evidence of pulmonary infarction.. There are no pleural effusions . MEDIASTINUM: There is no hilar nor mediastinal adenopathy. Visualized thyroid unremarkable. CARDIAC: Heart size is upper normal. There is no pericardial effusion.Caliber of the thoracic aorta is within normal limits. No dissection evident. There is no significant shift of the interventricula r septum. PARTIALLY VISUALIZED UPPERMOST ABDOMEN: No obvious findings OSSEOUS: No significant osseous lesions.There is a subacute appearing fracture of the right 4th rib. No prominent displacement. This fracture was not evident on the prior CT scan 02/04/2021. IMPRESSION: 1. No evidence of acute pulmonary emboli. No evidence of pulmonary infarction.No pleural effusions. 2. No intrathoracic adenopathy. 3. No aortic dissection. No pericardial effusion 4. There is a nondisplaced subacute appearing fracture of the right 4th rib. There is no pneumothor ax. RADIATION DOSE DELIVERED: 266.73mGy.cm Total DLP DATA REPOSITORY: All CT scans at this facility are submitted to the National Radiology Data Registry (NRDR) Dose Index Registry (DIR) with the [employer] ([employer]). RADIATION OPTIMIZATION: All CT scans at this facility use at least one of these dose optimization te chniques: automated exposure control; mA and/or kV adjustment per patient size (includes targeted exa ms where dose is matched to clinical indication); or iterative reconstruction.
--- NOTE | 2021-02-18 10:30 | RT.EKG_ITS ---
APPROVED REPORT Exam: Resting ECG Reason for Exam: chest pain Patient Location: E HR:56 bpm ECG Measurements Heart Rate 56 AXIS OK 162 P 71 QRSd 81 QRS 33 QT 401 T 41 QTc 387 Conclusion Sinus bradycardia...rate< 60 Probable left atrial enlargement...P >50mS, <-0.10mV V1 sinus rhythm at 56, normal axis, no STEMI, nondiagnostic EKG
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
[2021-02-18 10:53] LABS: Abs Immature Grans 0.04 10^3/uL (0.0-0.06); Absolute Basophil Count 0.06 10^3/uL (0.0-0.2); Absolute Lymphocyte Count 1.74 10^3/uL (1.2-3.4); Absolute Monocyte Count 0.63 10^3/uL (0.1-0.8); Absolute Neutrophil Count 7.96 10^3/uL (1.2-6.7); Basophils % 0.6; Eosinophils % 2.8; HCT 44.1 % (36.0-46.0); HGB 14.4 g/dL (11.2-15.7); Immature Grans % 0.4; Lymphocytes % 16.2; MCHC 32.7 % (32.0-36.0); MCV 100.9 fL (80-95); MPV 10.1 fL (8.0-11.0); Monocytes % 5.9; Neutrophils % 74.1; Nucleated RBC 0 %; Platelet Count 392 10^3/uL (130-400); RBC 4.37 10^6/uL (3.93-5.22); RDW 12.6 % (11.7-14.6); RDW-SD 47.6 fL; WBC 10.73 10^3/uL (4.4-10.8)
[2021-02-18 11:12] LABS: Source Nasal/Nares
[2021-02-18 11:12] LABS: ALT 39 U/L (14-59); AST 17 U/L (15-37); Albumin 3.8 g/dL (3.4-5.0); Alkaline Phosphatase 96 U/L (46-116); Anion Gap 7.7 mmol/L (3-11); BUN 14 mg/dL (7-18); Bilirubin, Total 0.3 mg/dL (0.2-1.0); CO2 30.3 mmol/L (21.0-32.0); CREATININE 0.7 mg/dL (0.55-1.02); Calcium 9.8 mg/dL (8.5-10.1); Chloride 105 mmol/L (98-107); Glucose 78 mg/dL (74-106); Potassium 3.6 mmol/L (3.5-5.1); Sodium 143 mmol/L (136-145); Total Protein 7.6 g/dL (6.4-8.2)
[2021-02-18 11:16] LABS: Troponin I < 0.05 ng/mL (<0.06)
[2021-02-18] MEDS: Omnipaque 350 MG/ML 100 ML BTL IJ (11:33)
[2021-02-18] MEDS: Normal Saline - Diluent 50 ML VIAL IV (11:34)
[2021-02-18 12:04] LABS: COVID-19 PCR Negative (Negative)
[2021-02-18] MEDS: Lidocaine 5% Patch 1 PATCH TP (13:02)
--- NOTE | 2021-02-18 13:23 | NUR.NOTE ---
patient received IS teaching and discharge teaching per provider order. home with friend Nursing Note:
== END 2021-02-18 13:22 | disposition home or self-care (01) ==
PROVIDERS: Emergency Provider Student in an Organized Health Care Education/Training Program; PCP Nurse Practitioner Family
DX: S22.31XA Fracture of one rib, right side, initial encounter for closed fracture (principal); R07.89 Other chest pain; W23.0XXA Caught, crushed, jammed, or pinched between moving objects, initial encounter
CPT/HCPCS: 36415; 71275; 80053; 87635; 93005; 99285; 84484; 85025; 93010; 99284; J3490

== ENCOUNTER 2021-02-20 10:10 | Emergency (ER) | payer MEDICAID, SELFPAY ==
[2021-02-20] VITALS (20 sets, daily range): BP systolic 94–109; BP diastolic 43–58; PULSE 53–69; RESP 14–22; TEMP 36.5–36.6; O2SAT 95–99
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
--- NOTE | 2021-02-20 11:15 | DI.US_ITS ---
Exam(s) US LOWER EXTREMITY VENOUS RT EXAM: US LOWER EXTREMITY VENOUS RT CLINICAL HISTORY: right foot swelling, leg pain TECHNIQUE: Grayscale, color, and doppler imaging of the deep venous system of the right lower extrem ity was performed. COMPARISON: US US PELVIC WITH TRANSVAGINAL US-M2 from 03/01/2019 FINDINGS: There is no evidence of intraluminal thrombus and there is normal compression and augmentation demons trated within the common femoral vein, femoral vein, and popliteal vein. In the ipsilateral calf the interrogated veins also exhibit normal compression/ augmentation properti es. The ipsilateral saphenofemoral junction is patent. IMPRESSION: 1. No evidence of DVT in the right lower extremity. DATA REPOSITORY:
--- NOTE | 2021-02-20 13:13 | W.ED.GENAD ---
Discharge Plan Disposition Patient Disposition: HOME Condition: Stable Discharge Details Clinical Impression: Foot pain, right Primary Care Provider: Lupillo Rodas ED Provider: Amy Pineda Home Meds and New Rx's Prescriptions: Continued cholecalciferol (vitamin D3) 1,000 unit capsule 1,000 unit PO DAILY RF: 0 albuterol sulfate 2.5 mg /3 mL (0.083 %) solution for nebulization 2.5 mg IH .Q4-6H PRNRF: 0 Atrovent HFA 17 mcg/actuation HFA aerosol inhaler 2 puff IH .Q4-6H PRNRF: 0 albuterol sulfate [ProAir HFA] 90 mcg/actuation HFA aerosol inhaler 2 puff IH QID RF: 0 vitamin P95-wnyml acid 1,000-400 mcg lozenge 1 mehreen SL DAILY RF: 0 pyridoxine (vitamin B6) 50 mg tablet 50 mg PO DAILY RF: 0 ibuprofen 200 mg Capsule 600 mg PO Q6H PRNRF: 0 Flovent HFA 110 mcg/actuation HFA aerosol inhaler 2 puff INHALATION BID RF: 0 iron 18 mg Tablet 18 mg PO DAILY RF: 0 lidocaine [Lidoderm] 5 % adhesive patch,medicated 1 patch topical DAILY Qty: 15 RF: 0 Discharge Instructions Instructions: Leg Pain (ED) Additional Instructions: Please return immediately to the emergency department if you develop any new or worsening symptoms, if your condition does not improve as expected, or if you become otherwise concerned. It is extremely important that you call soon as possible to make an appointment to be seen in follow-up for this visit by your primary care doctor and orthopedic surgery at [facility]. Please continue to use your walker as previously instructed. Referrals: Lupillo Rodas [Primary Care Provider] - Discharge Data Discharge Date/Time-TO BE ENTERED AT DEPARTURE: 02/20/21 16:00 Medical Decision Making Joann Irving is a 55 y/o woman with h/o anxiety, asthma, hypothyroidism diagnosed with pelvic fxs, sacral fx, rib fx after crush injury 02/04/21, now with sensation of numb and cold right foot since last night, no new trauma or inciting event. On exam Pt is well and non-toxic appearing. B/l feet neurovascularly intact on exam. Given recent trauma, concern for possible DVT, possible lumbar spine pathology causing cord compression. Plan for US, MRI l/s. Exam/hx at this time not c/w epidural abscess, epidural hematoma, sepsis, infectious etiology of symptoms. MRI l/s shows anterolisthesis per radiology, radiology recommends flexion/extension films. I discussed Pt presentation and results with Dr. Maldonado of orthopedic surgery, who reviewed imaging and recommended no flex/ex films needed, MRI findings not related to Pt's symptoms, okay for outpt f/u with either [facility] ortho or [facility] ortho as Pt prefers. I discussed results and recommendations of ortho to Pt, who states that she has established relationship with [facility] ortho and has f/u scheduled with them. Pt feels comfortable with d/c to home at this time, discussed importance of continuing to use walker at all times. I had a lengthy discussion with Patient regarding return to emergency department precautions, home care, and importance of outpatient follow-up. Pt verbalizes understanding of the plan and is amenable. Patient discharged to home with clear plan for outpatient follow-up. All questions were answered. Disposition decision was made weighing the risks and benefits of hospitalization versus outpatient treatment, the risk for further decompensation, and the patient's wishes. Medical Records Medical records reviewed: Yes I reviewed the patient's medical records. Imaging Data Radiologic Study: Attestation: I personally reviewed and interpreted this imaging study as follows: Radiologist's impression: EXAM: US LOWER EXTREMITY VENOUS RT CLINICAL HISTORY: right foot swelling, leg pain TECHNIQUE: Grayscale, color, and doppler imaging of the deep venous system of the right lower extremity was performed. COMPARISON: US US PELVIC WITH TRANSVAGINAL US-M2 from 03/01/2019 FINDINGS: There is no evidence of intraluminal thrombus and there is normal compression and augmentation demonstrated within the common femoral vein, femoral vein, and popliteal vein. In the ipsilateral calf the interrogated veins also exhibit normal compression/ augmentation properties. The ipsilateral saphenofemoral junction is patent. IMPRESSION: 1. No evidence of DVT in the right lower extremity. EXAM: MR LUMBAR SPINE WO CLINICAL HISTORY: trauma 2 wks ago, right foot numb. TECHNIQUE: Multiplanar multisequence MRI of the Lumbar spine was performed. COMPARISON: CT CT CHEST PE CTA from 02/18/[address] CHEST PE CTA from 02/18/2021 FINDINGS: Five lumbar vertebrae are presumed. Conus medullaris is at upper L2 level. There is no evidence of conus mass nor subjacent clumping of intrathecal nerve roots to suggest arachnoiditis. The distal thecal sac appears unremarkable.There is no evidence of Tarlov intrasacral cysts nor other significant findings within the sacral canal Bones:There are no fractures nor ominous osseous lesions in the lumbar vertebral bodies and visualized sacrum. Mild degenerative anterolisthesis of L4 upon L5 noted (see below) With respect to the individual levels... T12-L1: Unremarkable L1-2: Normal disc height and signal. Mild retrolisthesis of L1 upon L2. Mild annular bulging but no disc herniation. Central canal dimensions are lower normal.No significant foraminal stenosis. Mild facet degenerative changes. L2-3: Normal disc height. No disc herniation nor central canal stenosis.No foraminal stenosis.No facet arthropathy. L3-4: Normal disc height. No disc herniation or central canal stenosis.No foraminal stenosis.Right facet joint unremarkable. Mild degenerative changes evident in the left facet joint. L4-5: Mild disc space narrowing. There is mild degenerative anterolisthesis of L4 upon L5, approximately 3 millimeters. This is related to degenerative changes in the facet joints. There are no pars defects at the L4 level. There is approximately 5 millimeters anterior slippage of L4 upon L5 at this level. There is pseudo herniation of the annulus. Small tear in the left lateral annulus is noted at the level of the exiting left foramen. Mild foraminal stenosis evident on the left side at this level. Minimal if any significant foraminal stenosis on the right side. Mild central spinal canal stenosis. Bilateral significant facet arthropathy. L5-S1: Normal disc height and signal. There is small disc bulge in the left exiting neural foramen resulting in mild left-sided foraminal stenosis. Exiting right neural foramen is nicely patent. No central canal stenosis. Minimal facet degenerative changes. Soft tissues: paraspinal soft tissues appear unremarkable. IMPRESSION: 1. The main findings are at L4-5 level where there is grade 1 degenerative anterolisthesis of L4 upon L5, this related to bilateral facet arthropathy. This results in mild central spinal canal stenosis. There is also annular bulging in the floor of the exiting left neural foramen at this level resulting in mild left-sided foraminal stenosis. There is no foraminal stenosis on the right side. 2. Recommend flexion and extension lateral views to determine the true amount of slippage of L4 upon L5 during everyday activities. 3. There is mild retrolisthesis of L5 1 upon L2, approximately 2 millimeters. There is no disc herniation at this level. Central canal dimensions are lower normal flap. No significant foraminal stenosis at this level. No prominent facet arthropathy. HPI General Mode of arrival: ambulatory. Date/Time Provider Initiated Documentation: 02/20/21 11:03. Limitations to Documentation: no limitations. Information obtained by: patient, RN notes reviewed and old records reviewed. HPI Narrative: Joann Irving is a 55 y/o woman with h/o anxiety, asthma, hypothyroidism presenting to the emergency department with chief complaint foot numbness. Pt seen here 02/04 for crush injury when she was pinned between a horse and a truck. Pt was found to have pelvic fractures, sacral fracture and was transferred to [facility] where she was admitted for several days. Pt returned here 02/18 for right rib pain. Repeat CT showed right rib fracture. Pt was d/ben to home. Pt states that she has had mild unchanged pain throughout her foot since initial injury. Pain is diffuse throughout foot. She reports that last night foot began to feel cold and numb. Pt states that she contacted her physicians at [facility], who recommended she go to the ED for further eval. Pt reports that right foot continues to feel cold and numb, no improvement or worsening from last night. Has been walking with a walker, nor worsening of foot pain with weight bearing. She denies any new pain, fever, vomiting, diarrhea, SOB, cough, focal weakness, rash. Related Data Home Medications Medication Instructions Recorded Confirmed albuterol sulfate 2.5 mg IH .Q4-6H PRN ml 03/30/19 02/20/21 albuterol sulfate 90 mcg/actuation 2 puff IH QID 03/30/19 02/20/21 aerosol inhaler ipratropium bromide 17 2 puff IH .Q4-6H PRN gm 03/30/19 02/20/21 mcg/actuation HFA aerosol inhaler pyridoxine (vitamin B6) 50 mg 50 mg PO DAILY 03/30/19 02/20/21 tablet vitamin B12 1,000 mcg-folic acid 1 mehreen SL DAILY 03/30/19 02/20/21 400 mcg sublingual lozenge cholecalciferol (vitamin D3) 25 1,000 unit PO DAILY 03/31/19 02/20/21 mcg (1,000 unit) capsule ibuprofen 600 mg PO Q6H PRN 04/21/19 02/20/21 Flovent HFA 2 puff INHALATION BID 02/04/21 02/20/21 iron 18 mg PO DAILY 02/04/21 02/20/21 lidocaine [Lidoderm] 1 patch TOPICAL DAILY #15 ea 02/18/21 02/20/21 Previous Rx's Medication Instructions Recorded lidocaine [Lidoderm] 1 patch TOPICAL DAILY #15 ea 02/18/21 Allergies Allergy/AdvReac Type Severity Reaction Status Date / Time No Known Allergies Allergy Verified 02/20/21 10:40 General Stated Complaint: Vascular ERIC: 2 Review of Systems Narrative: Constitutional: denies fevers Eyes: denies eye pain ENT: denies ear pain, dental pain, sore throat Cardiovascular: denies chest pain, edema Respiratory: denies SOB, cough GI: denies abdominal pain, vomiting, diarrhea : denies flank pain MSK: denies back pain, neck pain, arthralgias Skin: denies rash Neuro: denies headaches, weakness, reports right foot numbness PFSH Medical History History of anxiety Pt reports during intake for surgery today. History of asthma Pt reports during intake for surgery 04/21/19. History of hypothyroidism Pt reports during intake for surgery today. Surgical History (Updated 05/05/19 @ 14:49 by Fiona Bansal LPN) History of appendectomy Age 5 History of tubal ligation 07/27/1990 Family History Father Hypertension Sister Thyroid disease Brother Down syndrome Mother Thyroid disease Anxiety Panic Social History Smoking/Tobacco Use Status: Current every day Tobacco Type: cigarettes Tobacco: How many years used: 40 Smoking risk assessment performed?: Yes Drug use: Never Substance use type: does not use Details: second hand marijuan smoke Do you feel safe at home: Yes Do you feel safe in your relationship?: Yes Female Reproductive History Menstrual Date of menopause: 12/23/13 History History 5 Para 5 Hx # Term Pregnancies 5 Multiple births Hx # Pregnancies Ectopic pregnancies AB induced Hx Number of Living Children 5 AB spontaneous Exam Narrative Exam Narrative: Constitutional: well and [id number], pleasant, conversing normally HENT: head atraumatic/normocephalic/normal inspection, mucous membranes moist Eyes: conjunctiva normal, sclera normal, pupils 3mm b/l Neck: no stridor, normal ROM, trachea midline Resp: normal work of breathing, speaking in full sentences Cardio: normal rate, normal rhythm Back: normal inspection, no rash Skin: warm, dry, normal color, no rash Neuro: alert, not altered, grossly non-focal, normal tone Ext: no edema, b/l feet warm and well perfused with brisk cap refill of toes, DP pulses intact and symmetric, no right posterior calf TTP, no TTP of the right foot/ankle/tib/fib, FROM right knee and right ankle. No objective sensory deficit of the right foot. Psych: normal mood, normal affect, normal behavior Course Vital Signs Vital signs: Vital Signs Temperature 36.5 C 02/20/21 10:29 Pulse 60 02/20/21 10:29 Respiratory Rate 22 02/20/21 10:29 Blood Pressure 108/51 L 02/20/21 10:29 Pulse Oximetry 97 02/20/21 10:29 Temperature 36.5 C 02/20/21 10:29 Temperature Source Temporal Artery Scan 02/20/21 10:29 Pulse 60 02/20/21 10:29 Respiratory Rate 22 02/20/21 10:29 Respiratory Effort Non-Labored 02/20/21 10:39 Blood Pressure 108/51 L 02/20/21 10:29 Blood Pressure Position Supine 02/20/21 10:29 Pulse Oximetry 97 02/20/21 10:29 Oxygen Delivery Method Room Air 02/20/21 10:29 Oxygen Flow Rate 0 02/20/21 10:29 Pain Level 0 02/20/21 10:41
--- NOTE | 2021-02-20 15:28 | NUR.NOTE ---
Nursing Note: Referral given to Care Management to assist patient in getting an appt with [facility] sooner than Mar 05. Eunice Doty
== END 2021-02-20 16:00 | disposition home or self-care (01) ==
PROVIDERS: Emergency Provider Student in an Organized Health Care Education/Training Program; PCP Nurse Practitioner Family
DX: M79.671 Pain in right foot (principal); R20.2 Paresthesia of skin
CPT/HCPCS: 99285; 72148; 93971; 99284

== ENCOUNTER → 2022-04-25 00:31 | Outpatient (CLI) | payer MEDICAID, SELFPAY ==
--- NOTE | 2022-04-25 07:15 | DI.US_ITS ---
Exam(s) US PELVIS TRANSVAGINAL EXAM: US PELVIS TRANSVAGINAL CLINICAL HISTORY: check fibriods,PELVIC PRESSURE,R10.2,D25.0 TECHNIQUE: Ultrasound performed using standard protocol. COMPARISON: No exams were available for comparison FINDINGS: Uterus measures 6.6 x 3.8 x 4.8 cm. There is hypoechoic 8 millimeter focus in the posterior midbody of the uterus consistent with fibroid or postoperative scarring. Endometrial stripe is about 2 sandra meters in thickness and appears homogeneous. Ovaries are unremarkable in appearance, right ovary measures 15 x 10 x 21 millimeters and left ovary measures 14 x 8 x 15 millimeters. IMPRESSION: Possible small posterior uterine fibroid. Examination is otherwise unremarkable. The patient report yunier has history of prior resection of multiple fibroids. DATA REPOSITORY:
== END ==
PROVIDERS: PCP Nurse Practitioner Family; Visit Provider Obstetrics & Gynecology
DX: D25.0 Submucous leiomyoma of uterus (principal); R10.2 Pelvic and perineal pain
CPT/HCPCS: 76830; 76856